=== PATIENT | male | born 1955 | race Caucasian/White ===

== ENCOUNTER → 2016-09-19 | Outpatient (CLI) | payer MEDICARE, MEDICAID ==
[~2016-09-19] MED LIST: ALBU18HF IH; ALEN40TA2 PO; ASPI325T4 PO; ATOR40TA68 PO; CHOL20003 PO; CITA20TA6 PO; HYDR-762 PO; IOHEXOL 300MG/ML 150 ML BTL ONE; LIRA0.6P2 SQ; LITH300T5 PO; LORA1TAB PO; METF-480 PO; MORP-58 PO; NAPR-688 PO; OMEP20CA16 PO; SOD CHLORIDE 0.9% 100 ML ONE; TADA5TAB5 PO
[2016-09-19 11:47] LABS: CREATININE 0.64 mg/dl (0.61-1.24)
--- NOTE | 2016-09-20 03:22 | RADRPT ---
PROCEDURE: CT Abdomen and pelvis with contrast. CLINICAL INDICATION: Abdominal pain. TECHNIQUE: CT scan of the abdomen and pelvis with contrast was performed on a multi-detector high -resolution CT scanner. The patient was scanned following the uncomplicated administration of 100 c c of Omnipaque 300 intravenous contrast. Coronal and sagittal reformatted images were obtained from the axial source images. Images were reviewed on a high-resolution PACS workstation. One or more of the following dose reduction techniques were used: - Automated exposure control. - Adjustment of the mA and/or kV according to patient size. - Use of iterative reconstruction technique. Exam CTD/vol = 22.79 mGy. Total exam DLP = 1388.85 mGy-cm. COMPARISON: None. FINDINGS: Evaluation of the lung bases demonstrates no pleural or parenchymal disease. There is a [place] he rnia along the left posterior hemidiaphragm. Abdomen: The liver is normal in size. There is no focal mass or dilatation of the biliary tree. T he gallbladder is not distended. Small gallstones are identified. The spleen, pancreas and left ad renal gland are within normal limits. There is a mass within the right adrenal gland measuring 4.9 x 4.3 cm. Bilateral kidneys are normal in size with symmetric enhancement. There are small left re nal cysts. There is no hydronephrosis or hydroureter. There are small periaortic lymph nodes. The abdominal aorta is of normal caliber with scattered atherosclerotic calcifications. There is no abnormal bowel wall thickening or distension. There is no bowel obstruction or free air . A normal appendix is identified. There is no diverticulosis or diverticulitis. There is no asci brooklynn. Pelvis: The bladder is unremarkable. There are bilateral small inguinal hernias containing fat. P rostatic seeds are noted. There is no significant pelvic adenopathy or free fluid. Evaluation of the osseous structures demonstrates no suspicious lytic or blastic lesion. IMPRESSION: Right adrenal mass measuring 4.9 x 4.3 cm. Cholelithiasis. Bilateral small inguinal hernias containing fat. Vascular calcifications reflective of atherosclerosis. Shotty periaortic lymph nodes. .Jt Marquez MD, MD Date Time Electronically viewed and signed by .Jt Marquez MD, MD on 09/20/2016 03:22 .T/
--- NOTE | 2016-09-20 16:41 | RADRPT ---
PROCEDURE: Whole body bone scan study CLINICAL INDICATION: 61 -year-old patient with prostate cancer, for evaluation for skeletal metast ases. TECHNIQUE: Following the intravenous injection of 25.5 mCi of Tc-99m MDP, images were not obtained due to a malfunctioning of the camera. COMPARISON: May 11, 2015, CT scan of the abdomen and pelvis dated September 19, 2016. FINDINGS: No images obtained. IMPRESSION: Intravenous injection of 25.5 mCi of Tc-99m MDP, with no images obtained do to a malfunction of the camera. The patient has been rescheduled. RPTAT: HH .Jalyn Martin MD, Date Time Electronically viewed and signed by .Jalyn Martin MD, on 09/20/2016 16:41 .L/
== END | disposition home or self-care (01) ==
LOC: NUC 11:00
PROVIDERS: ATTEND Specialist
DX: C61 Malignant neoplasm of prostate (principal)
CPT/HCPCS: 74177; 78306; 82565; 84520; Q9967